=== PATIENT | female | born 1960 | race Two or more races ===

== ENCOUNTER 2020-09-12 13:24 | Outpatient (CLI) | payer MEDICARE, OTHER ==
[~2020-09-12] VITALS: Ht 157.5 cm; Wt 95.3 kg
[~2020-09-12 13:24] MED LIST: QUETIAPINE FUM200 MG PO
[2020-09-12 14:08] VITALS: BP 111/78
--- NOTE | 2020-09-12 16:00 | Consultation ---
DATE OF CONSULTATION: 09/12/2020 CHIEF COMPLAINT: Abdominal pain. HISTORY OF PRESENT ILLNESS: The patient is a very pleasant 60-year-old female with past medical history of depression, anxiety, recent diagnosis of pneumonia. Apparently, the patient has been having abdominal pain, abdominal bloating, never had an endoscopy and colonoscopy before, referred by Dr. Shepard for for evaluation. PAST MEDICAL HISTORY: 1. Depression. 2. Pneumonia. 3. Anxiety. PAST SURGICAL HISTORY: None. MEDICATIONS: Depakote and Cymbalta. FAMILY HISTORY: No family history of GI malignancies. SOCIAL HISTORY: The patient denies any alcohol, but smokes about 4 to 5 cigarettes per day. Denies any IV drug abuse. ALLERGIES: Aspirin. REVIEW OF SYSTEMS: Positive for abdominal pain, GERD, constipation, on and off rectal bleeding, nausea. PHYSICAL EXAMINATION: VITAL SIGNS: Temperature 97, blood pressure 111/78, pulse 85, respirations 20. HEENT: Normocephalic and atraumatic. Sclerae are anicteric. NECK: Supple. No evidence of obvious lymphadenopathy. CARDIOVASCULAR: Regular rate and rhythm. Plus S1 and S2. LUNGS: Decreased breath sounds bilaterally based on the supine exam. ABDOMEN: Soft and nontender. No rebound. No guarding. No peritoneal sign. EXTREMITIES: No cyanosis. No clubbing. No edema. ASSESSMENT AND PLAN: This is a 60-year-old female with history of depression and anxiety, recent diagnosis of pneumonia, the patient has also obesity, never had a colonoscopy so needs a screening , also needs endoscopy for chronic GERD and abdominal pain. We will schedule the patient for above. Prep was explained to the patient and we will try to schedule her for next week. I want to thank, Dr. Pino Shepard, for kind referral. Pino Santos M.D. DR: Matt JOB#: [id number] CC: Pino Shepard M.D.; Fax#: [phone]
[2020-09-14] MEDS ORDERED: CYMBALTA60 MG ORAL (13:18)
[2020-09-14] MEDS ORDERED: DEPAKOTE500 MG PO (13:18)
== END 2020-09-12 15:24 | disposition home or self-care (01) ==
LOC: PAN 13:24
DX: R10.9 Unspecified abdominal pain (principal); F32.9 Major depressive disorder, single episode, unspecified; F41.9 Anxiety disorder, unspecified; R14.0 Abdominal distension (gaseous); Z79.899 Other long term (current) drug therapy; K21.9 Gastro-esophageal reflux disease without esophagitis; K59.00 Constipation, unspecified; K62.89 Other specified diseases of anus and rectum; F17.210 Nicotine dependence, cigarettes, uncomplicated; Z88.6 Allergy status to analgesic agent
CPT/HCPCS: G0463